=== PATIENT | male | born 1990 | race Caucasian/White ===

== ENCOUNTER 2017-04-23 09:02 | Inpatient (IN) | payer BC ==
[~2017-04-23] VITALS: Ht 182.9 cm; Wt 103.0 kg
[~2017-04-23 09:02] MED LIST: BUPIVACAINE 0.5% (SDV) 30 ML, morphine SULFATE (PF) 8 MG, EPINEPHrine 0.3 MG, KETOROLAC... IRR SCH; CEFAZOLIN 2 GM/50 ML (PMX) 50 ML IVPB SCH; DEXAMETHASONE 1 MG TAB PO SCH; SOD CHLORIDE 0.9% 100 ML, TRANEXAMIC ACID 3,000 MG IRR SCH; TRANEXAMIC ACID 1,000 MG in SOD CHLORIDE 0.9% 100 ML IVPB SCH
[2017-04-29 14:22] VITALS: Ht 182.9 cm; Wt 103.0 kg
[2017-04-30] VITALS (26 sets, daily range): BP systolic 97–144; BP diastolic 54–81; PULSE 77–120; RESP 12–20
[2017-04-30] MEDS ORDERED: CEFAZOLIN 2 GM/50 ML (PMX) 50 ML IVPB SCH (06:00)
[2017-04-30] MEDS ORDERED: BUPIVACAINE 0.5% (SDV) 30 ML, morphine SULFATE (PF) 8 MG, EPINEPHrine 0.3 MG, KETOROLAC... IRR SCH ×7 (06:00)
[2017-04-30] MEDS ORDERED: GABAPENTIN 300 MG CAP PO SCH ×2 (06:00→21:00)
[2017-04-30] MEDS ORDERED: TRANEXAMIC ACID 1,000 MG in SOD CHLORIDE 0.9% 100 ML IVPB SCH (06:00)
[2017-04-30] MEDS ORDERED: DEXAMETHASONE 1 MG TAB PO SCH (06:00)
--- NOTE | 2017-04-30 06:55 | HP ---
Date/Time of Note Date/Time of Note DATE: 04/30/17 TIME: 06:53 Assessment/Plan VTE Prophylaxis VTE Prophylaxis Intervention: anti-embolic stocking Lines/Catheters IV Catheter Type (from Nrs): Peripheral IV Urinary Cath still in place: No HPI/ROS Admit Date/Time Admit Date/Time Hx of Present Illness Patient has ongoing left hip pain that has been chronic as a result of football injuries over the years. ROS He has no active diseases. He has significant pain and stiffness in the left hip. PMH/Family/Social Past Medical History Medical History: no pertinent history Past Surgical History He has a history of multiple hip arthroscopies in the past on both hips. Family History Significant Family History: no pertinent family hx Social History Alcohol Use: rarely Smoking Status: Never smoker Drug Use: none Exam/Review of Systems Medications Medications Current Medications Cefazolin Sodium/ Dextrose (Ancef 2 Gm/50 ml (Pmx)) 50 ml @ 100 mls/hr PRE-OP IVPB ; Start 04/30/17 at 06:00; Stop 04/30/17 at 16:00 Tramadol HCl (Ultram) 50 mg PRE-OP PO ; Start 04/30/17 at 06:00; Stop 04/30/17 at 16:00 Gabapentin 600 mg 600 mg PRE-OP PO ; Start 04/30/17 at 06:00; Stop 04/30/17 at 16:00 Tranexamic Acid/ Sodium Chloride 110 ml @ 200 mls/hr Pre-op IVPB ; Start at 06:00; Stop 04/30/17 at 16:00 Sodium Chloride/ Tranexamic Acid INTRA-OP IRR ; Start 04/30/17 at 06:00; Stop 04/30/17 at 16:00 Bupivacaine HCl/ Morphine Sulfate/ Epinephrine/ Ketorolac Tromethamine/ Clonidine/Sodium Chloride/ Vancomycin HCl (Marcaine 0.5% (Sdv)/Duramorph/ EPINEPHrine/ Toradol/Duraclon/ NS/Vancocin) INTRA-OP IRR ; Start 04/30/17 at 06 :00; Stop 04/30/17 at 16:00 Dexamethasone (Decadron) 2 mg PREOP PO ; Start 04/30/17 at 06:00; Stop 04/30/17 at 16:00 YAEL MOTLEY MD Apr 30, 2017 06:55
--- NOTE | 2017-04-30 06:55 | HPN ---
Date/Time of Note Date/Time of Note DATE: 04/30/17 TIME: 06:55 Interval H&P Admission Note Pt. seen H&P reviewed: No system changes YAEL MOTLEY MD Apr 30, 2017 06:55
[2017-04-30] MEDS: traMADol 50 MG TAB PO SCH ×2 (08:43→14:21)
[2017-04-30] MEDS ORDERED: CA CHLORIDE 10% 10 ML SYRINGE ONE (09:06)
[2017-04-30] MEDS ORDERED: POLYMYXIN/BACITRACIN 1L IRRIG ONE (09:06)
[2017-04-30] MEDS ORDERED: THROMBIN 5000 UNIT VIAL ONE (09:06)
[2017-04-30] MEDS: SOD CHLORIDE 0.9% 100 ML, TRANEXAMIC ACID 3,000 MG IRR SCH ×4 (09:14→14:21)
[2017-04-30] MEDS ORDERED: CEFAZOLIN 1 GM INJ ONE (09:25)
[2017-04-30] MEDS ORDERED: ONDANSETRON 4 MG INJ ONE (09:25)
[2017-04-30] MEDS ORDERED: NEOSTIGMINE 3 MG/3 ML SYRINGE ONE (09:25)
[2017-04-30] MEDS ORDERED: MIDAZOLAM 1 MG/ML 2 ML INJ ONE (09:25)
[2017-04-30] MEDS ORDERED: FENTAnyl 50 MCG/ML VIAL ONE (09:25)
[2017-04-30] MEDS ORDERED: METOCLOPRAMIDE 10 MG INJ ONE (09:26)
[2017-04-30] MEDS ORDERED: morphine SULFATE/PF (10 MG/10 ML) INJ ONE (09:26)
[2017-04-30] MEDS ORDERED: HYDROmorphONE (0.2 MG/ML) 10ML SYG IV PRN ×2 (11:00)
[2017-04-30] MEDS ORDERED: MEPERIDINE 25 MG INJ IV PRN (11:00)
[2017-04-30] MEDS ORDERED: DIPHENHYDRAMINE 50 MG INJ IV PRN ×2 (11:00→13:00)
[2017-04-30] MEDS ORDERED: METOCLOPRAMIDE 10 MG INJ IV PRN (11:00)
[2017-04-30] MEDS ORDERED: ONDANSETRON 4 MG INJ IV PRN ×2 (11:00→13:00)
[2017-04-30] MEDS: LACTATED RINGER'S 1,000 ML IV SCH ×2 (12:42→22:19)
--- NOTE | 2017-04-30 12:47 | OPR ---
Date/Time of Note Date/Time of Note DATE: 04/30/17 TIME: 12:44 Operative Report Procedure Date: Apr 30, 2017 Preoperative Diagnosis Left hip arthritis following hip arthroscopy Postoperative Diagnosis Left hip arthritis following hip arthroscopy Operation Performed Revision of hip arthroscopy to total hip arthroplasty, left hip Surgeon see signature line Printing Shop Supervisor: WOLFGANG AGUILAR MD Anesthesia Type: general Estimated Blood Loss: 150 - 200 ml's Transfusion Required: no Complications: no Pt Condition Post Procedure: stable Disposition: PACU Procedure Description LABELS MOLDER SURGEON: Wolfgang Aguilar MD was asked to be present at my request as a result of the complexity associated with this procedure including positioning of the extremity, positioning of the instrumentation and protection of the neurovascular structures. In my opinion, the assistance offered by a surgical product sales consultant is insufficient and Dr. Carrera should be compensated for his time. PROCEDURE IN DETAIL: Following the administration of general endotracheal anesthesia supplemented with a spinal anesthetic, the patient was placed in the supine position. The bilateral lower extremities were then prepped and draped in the usual sterile fashion. A central office installer radiograph was obtained for preliminary limb length and femoral size as well as acetabular size. A lateral incision was then made exposing the tensor fascia the fascia was incised the tensor was retracted laterally and the vessels were cauterized. Very significant anterior capsular scarring was noted from the prior surgical procedure. An extensive debridement was undertaken in anticipation of preparation of the anterior capsule. The anterior capsule was then identified and prepared. A capsulectomy was then performed and the femoral head was then evaluated. Severe arthritic changes were noted. A femoral head cut was then made in the appropriate degree of version and inclination. The acetabulum was then exposed and a capsulectomy and labrectomy were completed. The central portion was then entered and serially reamed up to the 53 mm size. A Depuy Warren cup which is 54 mm in size with a standard liner was then fit into position with solid fixation. A 40 mm screw was used for additional fixation. Attention was then directed to the femur, the femur was exposed and prepared. The canal was entered and serially reamed up to the 10 mm size. A 10 mm Depuy [place] stem was then inserted with solid fixation. A +1.5, 32 mm femoral head, which was ceramic was then inserted. The leg was taken through full range of motion with no evident instability. In addition, radiographs revealed excellent position with reproduction of the limb lengths within a millimeter. The wound was irrigated thoroughly. The wound was then closed in layers and a Prenio for the final cover. This was watertight. Estimated blood loss was procedure was 200 cc. Postoperative radiographs will be obtained in the recovery room. YAEL MOTLEY MD Apr 30, 2017 12:47
[2017-04-30] MEDS ORDERED: ACETAMINOPHEN 500 MG TAB PO PRN (13:00)
[2017-04-30] MEDS ORDERED: TRANEXAMIC ACID 1,000 MG in SOD CHLORIDE 0.9% 100 ML IV ONE (13:00)
[2017-04-30] MEDS ORDERED: MAGNESIUM HYDROXIDE 30ML CUP PO PRN (13:00)
[2017-04-30] MEDS ORDERED: OXYCODONE/ACETAMINOPHEN (5/325) TAB PO PRN (13:00)
[2017-04-30] MEDS ORDERED: BETHANECHOL 25 MG TAB PO PRN (13:00)
[2017-04-30] MEDS ORDERED: KETOROLAC 15 MG INJ IV PRN (13:00)
[2017-04-30] MEDS ORDERED: morphine 4 MG/ML VIAL IV PRN (13:00)
[2017-04-30] MEDS ORDERED: morphine 2 MG INJ IV PRN (13:00)
[2017-04-30] MEDS: HYDROmorphONE (0.2 MG/ML) 10ML SYG IV PRN ×3 (13:09→13:27)
[2017-04-30] MEDS: CEFAZOLIN 1 GM/50 ML (PMX) 50 ML IVPB SCH ×2 (13:10→20:11)
--- NOTE | 2017-04-30 13:30 | RADRPT ---
PROCEDURE: CR Pelvis and Left Hip CLINICAL INDICATION: Status post total left hip replacement TECHNIQUE: Radiograph is submitted including an AP pelvis and an additional image of the left hip. COMPARISON: Comparison to the intraoperative study done earlier on the same date. FINDINGS: Osseous structures: The well seated total left hip replacement is again evident. There is a small cu rvilinear ossification projecting lateral to the roof of the left acetabulum and inferior to the gre ater trochanter, and several calcific densities project lateral to the right hip compatible with eit her old avulsions or dystrophic calcifications. Hip joints: Moderate osteoarthritic changes seen about the right hip. Sacroiliac joints: The sacroiliac joints appear unremarkable with no significant sclerosis or erosio n. Soft tissues: There is a small amount of subcutaneous air seen lateral to the left hip. IMPRESSION: 1. There is again a well seated total left hip replacement. 2. Well-defined calcifications are seen lateral to the right hip, lateral to the roof of the left a cetabulum, and inferior to the left greater trochanter which could represent an old avulsion fragmen ts or dystrophic calcification. 3. Moderate osteoarthritic changes seen about the right hip. Physician Julien Date Time Electronically viewed and signed by Physician Julien on 04/30/2017 13:30 /
--- NOTE | 2017-04-30 13:33 | RADRPT ---
PROCEDURE: RF intraoperative images of left hip CLINICAL INDICATION: Left hip arthroplasty TECHNIQUE: 6 x-ray images were obtained intraoperatively during a left hip arthroplasty procedure. COMPARISON: None available FINDINGS: 6 x-ray images were obtained intraoperatively for localization during a total left hip replacement. 0.2 minutes of fluoroscopy time was utilized by Dr. Ramirez during the procedure. IMPRESSION: Xray images obtained intraoperatively for localization during a total left hip replacement. Physician Julien Date Time Electronically viewed and signed by Kenia Dixon Physician on 04/30/2017 13:32 /
[2017-04-30 13:44] LABS: BASOPHIL # 0.1 10^3/ul (0.0-0.1); BASOPHILS % 0.3 % (0.0-2.0); HEMATOCRIT 41.2 % (42.0-52.0); HEMOGLOBIN 14.2 g/dl (14.0-18.0); LYMPHOCYTES # 1.7 10^3/ul (0.8-2.9); LYMPHOCYTES % 10.4 % (15.0-51.0); MEAN CORPUSCULAR HEMOGLOBIN 31.1 pg (29.0-33.0); MEAN CORPUSCULAR HGB CONC 34.5 g/dl (32.0-37.0); MEAN CORPUSCULAR VOLUME 90.4 fl (82.0-101.0); MEAN PLATELET VOLUME 8.3 fl (7.4-10.4); MONOCYTE # 0.4 10^3/ul (0.3-0.9); MONOCYTES % 2.5 % (0.0-11.0); NEUTROPHILS % 86.1 % (39.0-77.0); PLATELET COUNT 283 10^3/UL (140-415); RED BLOOD COUNT 4.56 10^6/ul (4.70-6.10)
[2017-04-30 13:46] LABS: HOLD TRANSMISSIONS 1
[2017-04-30 13:50] LABS: WHITE BLOOD COUNT 16.3 10^3/ul (4.8-10.8)
[2017-04-30 15:02] LABS: ADD UMIC NO; UR ASCORBIC ACID NEGATIVE (NEGATIVE); UR BILIRUBIN (Dip) NEGATIVE (NEGATIVE); UR BLOOD (Dip) NEGATIVE (NEGATIVE); UR CLARITY CLEAR (CLEAR); UR COLOR STRAW (YELLOW); UR GLUCOSE (Dip) NEGATIVE (NEGATIVE); UR KETONES (Dip) NEGATIVE (NEGATIVE); UR LEUKOCYTE ESTERASE (Dip) NEGATIVE Leu/ul (NEGATIVE); UR NITRITE (Dip) NEGATIVE (NEGATIVE); UR SPECIFIC GRAVITY (Dip) 1.005 (1.003-1.030); UR TOTAL PROTEIN (Dip) NEGATIVE (NEGATIVE); UR UROBILINOGEN (Dip) NEGATIVE (NEGATIVE)
--- NOTE | 2017-04-30 15:38 | PDOCDIS ---
Discharge Instructions DIAGNOSIS Discharge Diagnosis Hip arthritis CONDITION Patient Condition: Good HOME CARE INSTRUCTIONS: Diet Instructions: Regular ACTIVITY: Activity Restrictions: Slowly Increase Activity Keep Limb Elevated Bathing Restrictions: Shower FOLLOW UP/APPOINTMENTS Follow-up Plan 2 weeks SCHOOL/WORK RELEASE May return to School/Work with: With Restrictions School/Work Release Comment: No hip extension for six weeks YAEL MOTLEY MD Apr 30, 2017 15:38
[2017-04-30] MEDS: DEXAMETHASONE 2 MG TAB PO SCH (18:32)
[2017-04-30] MEDS: SENNA/DOCUSATE NA (8.6MG/50MG) TAB PO SCH (20:11)
[2017-04-30] MEDS: ZOLPIDEM 5 MG TAB PO PRN (21:07)
[2017-05-01] MEDS: ZOLPIDEM 5 MG TAB PO PRN (00:13)
[2017-05-01] MEDS: DEXAMETHASONE 2 MG TAB PO SCH ×3 (00:13→12:07)
[2017-05-01] MEDS: OXYCODONE/ACETAMINOPHEN (5/325) TAB PO PRN ×3 (03:46→12:07)
[2017-05-01] MEDS: CEFAZOLIN 1 GM/50 ML (PMX) 50 ML IVPB SCH (05:13)
[2017-05-01 05:17] LABS: BASOPHILS % 0.4 % (0.0-2.0); HEMATOCRIT 34.2 % (42.0-52.0); HEMOGLOBIN 11.4 g/dl (14.0-18.0); LYMPHOCYTES % 9.3 % (15.0-51.0); MEAN CORPUSCULAR HEMOGLOBIN 29.8 pg (29.0-33.0); MEAN CORPUSCULAR HGB CONC 33.3 g/dl (32.0-37.0); MEAN CORPUSCULAR VOLUME 89.5 fl (82.0-101.0); MONOCYTES % 9.4 % (0.0-11.0); NEUTROPHIL # 8.9 10^3/ul (1.6-7.5); NEUTROPHILS % 80.4 % (39.0-77.0); PLATELET COUNT 225 10^3/UL (140-415); RED BLOOD COUNT 3.82 10^6/ul (4.70-6.10); RED CELL DISTRIBUTION WIDTH 12.1 % (11.5-14.5)
--- NOTE | 2017-05-01 06:54 | PN ---
Date/Time of Note Date/Time of Note DATE: 05/01/17 TIME: 06:53 24 hour Interval Summary Patient is awake and alert with no complaints. Physical Exam Physical examination: His wound is clean and dry. He is neurologically intact. There are no signs of DVT. Vital Signs Date Time Temp Pulse Resp B/P Pulse Ox O2 Delivery O2 Flow Rate FiO2 04/30/17 21:41 99.2 85 20 114/57 100 04/30/17 21:00 Nasal Cannula 2.0 Intake and Output 04/30/17 04/30/17 05/01/17 15:00 23:00 07:00 Intake Total 2100 ml 1050 ml 1130 ml Output Total 980 ml 1900 ml Balance 1120 ml 1050 ml -770 ml VTE Prophylaxis VTE Prophylaxis Intervention: SCD's Lines/Catheters IV Catheter Type: Saline Lock Dow in Place: No Results Result Diagram: 05/01/17 0432 Results 24hrs Laboratory Tests Test 04/30/17 13:00 04/30/17 13:36 05/01/17 04:32 Urine Color STRAW Urine Clarity CLEAR Urine pH 6.0 Urine Specific [place] 1.005 Urine Ketones NEGATIVE Urine Nitrite NEGATIVE Urine Bilirubin NEGATIVE Urine Urobilinogen NEGATIVE Urine Leukocyte Esterase NEGATIVE Urine Hemoglobin NEGATIVE Urine Glucose NEGATIVE Urine Total Protein NEGATIVE White Blood Count 16.3 H 11.0 #H Red Blood Count 4.56 L 3.82 L Hemoglobin 14.2 11.4 L Hematocrit 41.2 L 34.2 L Mean Corpuscular Volume 90.4 89.5 Mean Corpuscular Hemoglobin 31.1 29.8 Mean Corpuscular Hemoglobin Concent 34.5 33.3 Red Cell Distribution Width 12.0 12.1 Platelet Count 283 225 # Mean Platelet Volume 8.3 9.0 Neutrophils % 86.1 H 80.4 H Lymphocytes % 10.4 L 9.3 L Monocytes % 2.5 9.4 Eosinophils % 0.0 0.0 Basophils % 0.3 0.4 Nucleated Red Blood Cells % 0.0 0.0 Neutrophils # 14.0 H 8.9 H Lymphocytes # 1.7 1.0 Monocytes # 0.4 1.0 H Eosinophils # 0.0 0.0 Basophils # 0.1 0.0 Nucleated Red Blood Cells # 0.0 0.0 CBC Results Faxed/Phoned 1 *H Assessment/Plan Assessment/Plan Assessment: Status post total hip replacement Plan: He will be discharged following clearance by physical therapy later this morning. Medications Medications Home Meds No Active Prescriptions or Reported Meds YAEL MOTLEY MD May 01, 2017 06:54
--- NOTE | 2017-05-01 06:55 | DS ---
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 Hospital Course Patient was admitted and underwent an uncomplicated procedure postoperative day #1 he was afebrile wound was clean and dry neurologically intact discharged following clearance by physical therapy Home Meds No Active Prescriptions or Reported Meds Follow-up Plan 2 weeks Primary Care Provider Not On Staff Doctor Pending Labs Laboratory Tests Test 04/30/17 13:00 04/30/17 13:36 05/01/17 04:32 Urine Color STRAW (YELLOW) Urine Clarity CLEAR (CLEAR) Urine pH 6.0 (5.0-9.0) Urine Specific [place] 1.005 (1.003-1.030) Urine Ketones NEGATIVEmg/dL (NEGATIVE) Urine Nitrite NEGATIVEmg/dL (NEGATIVE) Urine Bilirubin NEGATIVEmg/dL (NEGATIVE) Urine Urobilinogen NEGATIVEmg/dL (NEGATIVE) Urine Leukocyte Esterase NEGATIVELeu/ul (NEGATIVE) Urine Hemoglobin NEGATIVEmg/dL (NEGATIVE) Urine Glucose NEGATIVEmg/dL (NEGATIVE) Urine Total Protein NEGATIVEmg/dl (NEGATIVE) White Blood Count 16.310^3/ul (4.8-10.8) 11.010^3/ul (4.8-10.8) Red Blood Count 4.5610^6/ul (4.70-6.10) 3.8210^6/ul (4.70-6.10) Hemoglobin 14.2g/dl (14.0-18.0) 11.4g/dl (14.0-18.0) Hematocrit 41.2% (42.0-52.0) 34.2% (42.0-52.0) Mean Corpuscular Volume 90.4fl (82.0-101.0) 89.5fl (82.0-101.0) Mean Corpuscular Hemoglobin 31.1pg (29.0-33.0) 29.8pg (29.0-33.0) Mean Corpuscular Hemoglobin Concent 34.5g/dl (32.0-37.0) 33.3g/dl (32.0-37.0) Red Cell Distribution Width 12.0% (11.5-14.5) 12.1% (11.5-14.5) Platelet Count 74670^3/UL (140-415) 42880^3/UL (140-415) Mean Platelet Volume 8.3fl (7.4-10.4) 9.0fl (7.4-10.4) Neutrophils % 86.1% (39.0-77.0) 80.4% (39.0-77.0) Lymphocytes % 10.4% (15.0-51.0) 9.3% (15.0-51.0) Monocytes % 2.5% (0.0-11.0) 9.4% (0.0-11.0) Eosinophils % 0.0% (0.0-7.0) 0.0% (0.0-7.0) Basophils % 0.3% (0.0-2.0) 0.4% (0.0-2.0) Nucleated Red Blood Cells % 0.0/100WBC (0.0-0.0) 0.0/100WBC (0.0-0.0) Neutrophils # 14.010^3/ul (1.6-7.5) 8.910^3/ul (1.6-7.5) Lymphocytes # 1.710^3/ul (0.8-2.9) 1.010^3/ul (0.8-2.9) Monocytes # 0.410^3/ul (0.3-0.9) 1.010^3/ul (0.3-0.9) Eosinophils # 0.010^3/ul (0.0-0.5) 0.010^3/ul (0.0-0.5) Basophils # 0.110^3/ul (0.0-0.1) 0.010^3/ul (0.0-0.1) Nucleated Red Blood Cells # 0.010^3/ul (0.0-0.0) 0.010^3/ul (0.0-0.0) CBC Results Faxed/Phoned 1 YAEL MOTLEY MD May 01, 2017 06:55
[2017-05-01 08:00] VITALS: BP 112/56; RESP 18
[2017-05-01] MEDS: SENNA/DOCUSATE NA (8.6MG/50MG) TAB PO SCH (08:00)
[2017-05-01] MEDS: LACTATED RINGER'S 1,000 ML IV SCH (08:42)
[2017-05-01] MEDS ORDERED: ASPIRIN 81 MG TAB PO SCH (09:00)
[2017-05-01 11:47] VITALS: BP 113/61; PULSE 64; RESP 16
--- NOTE | 2017-05-01 12:55 | PN ---
Date/Time of Note Date/Time of Note DATE: 05/01/17 TIME: 12:53 Assessment/Plan VTE Prophylaxis VTE Prophylaxis Intervention: ambulation Lines/Catheters IV Catheter Type (from Nrsg): Saline Lock Urinary Cath still in place: No Subjective 24 Hr Interval Summary Free Text/Dictation Anethesia note: A 26 year old male s/p hip arthroplasty under Ga, spinal pod #1 is doing well. pain is controlle. no itching, headache, back pain or nack inflammation,or n/v. care per surgery team Exam/Review of Systems Vital Signs Vitals Vital Signs Date Time Temp Pulse Resp B/P Pulse Ox O2 Delivery O2 Flow Rate FiO2 05/01/17 11:47 98.4 64 16 113/61 94 Room Air 04/30/17 21:00 2.0 Intake and Output 04/30/17 04/30/17 05/01/17 14:59 22:59 06:59 Intake Total 2100 ml 1050 ml 1130 ml Output Total 980 ml 1900 ml Balance 1120 ml 1050 ml -770 ml Results Result Diagram: 05/01/17 0432 Results 24 hrs Laboratory Tests Test 04/30/17 13:00 04/30/17 13:36 05/01/17 04:32 Urine Color STRAW Urine Clarity CLEAR Urine pH 6.0 Urine Specific [place] 1.005 Urine Ketones NEGATIVE Urine Nitrite NEGATIVE Urine Bilirubin NEGATIVE Urine Urobilinogen NEGATIVE Urine Leukocyte Esterase NEGATIVE Urine Hemoglobin NEGATIVE Urine Glucose NEGATIVE Urine Total Protein NEGATIVE White Blood Count 16.3 H 11.0 #H Red Blood Count 4.56 L 3.82 L Hemoglobin 14.2 11.4 L Hematocrit 41.2 L 34.2 L Mean Corpuscular Volume 90.4 89.5 Mean Corpuscular Hemoglobin 31.1 29.8 Mean Corpuscular Hemoglobin Concent 34.5 33.3 Red Cell Distribution Width 12.0 12.1 Platelet Count 283 225 # Mean Platelet Volume 8.3 9.0 Neutrophils % 86.1 H 80.4 H Lymphocytes % 10.4 L 9.3 L Monocytes % 2.5 9.4 Eosinophils % 0.0 0.0 Basophils % 0.3 0.4 Nucleated Red Blood Cells % 0.0 0.0 Neutrophils # 14.0 H 8.9 H Lymphocytes # 1.7 1.0 Monocytes # 0.4 1.0 H Eosinophils # 0.0 0.0 Basophils # 0.1 0.0 Nucleated Red Blood Cells # 0.0 0.0 CBC Results Faxed/Phoned 1 *H Medications Medications Current Medications Senna/Docusate Sodium (Senokot-S) 1 tab BID PO Last administered on 05/01/17 08:00; Admin Dose 1 TAB; Start 04/30/17 at 21:00 Simethicone (Mylicon) 80 mg TID PRN PO DISTENSION/GAS/BLOATING; Start 04/30/17 at 13:00 Magnesium Hydroxide (Milk Of Mag) 30 ml BID PRN PO CONSTIPATION; Start at 13:00 Acetaminophen (Tylenol Tab) 1,000 mg Q4H PRN PO TEMP GREATER THAN 100.4F; Start 04/30/17 at 13:00 Gabapentin (Neurontin) 300 mg HS PO Last administered on 04/30/17 20:11; Admin Dose 300 MG; Start 04/30/17 at 21:00 Oxycodone/ Acetaminophen (Percocet (5/ 325)) 1 tab Q4H PRN PO PAIN LEVEL 1-5 Last administered on 04/30/17 22:18; Admin Dose 1 TAB; Start 04/30/17 at 13:00 Oxycodone/ Acetaminophen (Percocet (5/ 325)) 2 tab Q4H PRN PO PAIN LEVEL 6-10 Last administered on 05/01/17 12:07; Admin Dose 2 TAB; Start 04/30/17 at 13:00 Morphine Sulfate (morphine) 2 mg Q2H PRN IV PAIN LEVEL 1-5; Start 04/30/17 at 13:00 Morphine Sulfate (morphine) 4 mg Q4H PRN IV PAIN LEVEL 6-10; Start 04/30/17 at 13:00 Ketorolac Tromethamine (Toradol) 15 mg Q6H PRN IV PAIN; Start 04/30/17 at 13:00 ; Stop 05/03/17 at 12:59 Ondansetron HCl (Zofran Inj) 4 mg Q6H PRN IV NAUSEA AND/OR VOMITING Last administered on 04/30/17 17:00; Admin Dose 4 MG; Start 04/30/17 at 13:00 Diphenhydramine HCl (Benadryl) 25 mg Q6H PRN IV PRURITUS; Start 04/30/17 at 13: 00 Aspirin 81 mg 81 mg DAILY PO Last administered on 05/01/17 08:15; Admin Dose 81 MG; Start 05/01/17 at 09:00 Lactated Ringer's (Lr) 1,000 ml @ 100 mls/hr Q10H IV Last administered on 04/30 22:19; Admin Dose 100 MLS/HR; Start 04/30/17 at 12:42 JEIMY GUY MD May 01, 2017 12:55
== END 2017-05-01 14:10 | disposition home or self-care (01) | DRG 470 ==
LOC: REC 04-30 07:12 → MS1 04-30 14:05
PROVIDERS: ADMIT Orthopaedic Surgery; ATTEND Orthopaedic Surgery
PROC: 0SRB04A Replacement of Left Hip Joint with Ceramic on Polyethylene Synthetic Substitute, Uncemented, Open Approach (ICD-10-PCS; principal; 2017-04-30 09:30)
DX: M16.52 Unilateral post-traumatic osteoarthritis, left hip (principal)
CPT/HCPCS: 72170; 73530; 81003; 85025; 86999; 87086; 88304; 88311; 97162; C1713; C1776; J0171; J0690; J0735; J1170; J1885; J2175; J2250; J2274; J2405; J2710; J2765; J3010; J3370; J7120